=== PATIENT | female | born 1990 | race Caucasian/White ===

== ENCOUNTER 2022-08-11 21:11 | Emergency (ER) | payer OTHER ==
[~2022-08-11] VITALS: Ht 167.6 cm; Wt 95.3 kg
[2022-08-11] MEDS ORDERED: ALBUTEROL/IPRATROPIUM 3 ML NEB NEB ONE (22:00)
[2022-08-11] MEDS ORDERED: ALBUTEROL/IPRATROPIUM 3 ML NEB ONE (22:34)
[2022-08-11] MEDS ORDERED: PROVENTIL HFA6.7 GM INH (23:10)
[2022-08-11] MEDS ORDERED: PREDNISONE 20 MG TAB PO SCH (23:15)
[2022-08-11] MEDS ORDERED: LEVOFLOXACIN500 MG PO (23:19)
[2022-08-11] MEDS ORDERED: PREDNISONE20 MG PO (23:21)
[2022-08-11] MEDS ORDERED: GUAIFEN-CODEINE5 ML PO (23:23)
[2022-08-11 23:42] VITALS: BP 142/72
[2022-08-12] MEDS ORDERED: PREDNISONE20 MG PO (00:24)
[2022-08-12] MEDS ORDERED: LEVOFLOXACIN500 MG PO (00:24)
[2022-08-12] MEDS ORDERED: GUAIFEN-CODEINE5 ML PO (00:24)
[2022-08-12] MEDS ORDERED: PROVENTIL HFA6.7 GM INH (00:24)
== END 2022-08-11 23:42 | disposition home or self-care (01) ==
LOC: FSED 21:16
DX: R50.9 Fever, unspecified (principal); J20.9 Acute bronchitis, unspecified; R05.9 Cough, unspecified; M54.9 Dorsalgia, unspecified; G89.29 Other chronic pain; F17.210 Nicotine dependence, cigarettes, uncomplicated
CPT/HCPCS: 71046; 81025; 99283; J7512